=== PATIENT | female | born 1985 | race Caucasian/White ===

== ENCOUNTER → 2019-04-03 | Outpatient (CLI) | payer BC ==
[~2019-04-03] MED LIST: ANUS2.5C2 TOP; COLA50CA3 PO; IBUP600T26 PO; LABE300T PO; MAPA500T17 PO; MOM30SS PO; NUVAMIS2 VA; PRENTAB74 PO
[2019-04-03 08:23] LABS: HEMOGLOBIN A1c 5.2 %
[2019-04-03 08:31] LABS: ALBUMIN 3.8 GM/DL (3.2-5.2); ALT/SGPT 24 U/L (12-78); BILIRUBIN,TOTAL 0.5 MG/DL (0.2-1.0); BLOOD UREA NITROGEN 9 MG/DL (7-18); CARBON DIOXIDE LEVEL 22 MEQ/L (21-32); CHLORIDE LEVEL 116 MEQ/L (98-107); CHOLESTEROL LEVEL 188 MG/DL (<200); CHOLESTEROL RISK RATIO 2.441 (<5); CREATININE FOR GFR 0.89 MG/DL (0.55-1.30); FREE T4 0.99 NG/DL (0.76-1.46); GLOMERULAR FILTRATION RATE > 60.0 (>60); GLUCOSE, FASTING 103 MG/DL (70-100); HDL CHOLESTEROL 77 MG/DL (>40); LDL CHOLESTEROL 87 MG/DL (<100); NON-HDL-C 111 MG/DL; SODIUM LEVEL 134 MEQ/L (136-145); TOTAL PROTEIN 6.9 GM/DL (6.4-8.2); TRIGLYCERIDES LEVEL 122 MG/DL (<150)
== END ==
LOC: M LAB 07:28
PROVIDERS: ATTEND Physician Assistant
DX: E66.8 Other obesity (principal); Z13.1 Encounter for screening for diabetes mellitus

== ENCOUNTER → 2019-08-03 | Outpatient (CLI) | payer BC ==
[2019-08-03 10:37] LABS: HEMOGLOBIN A1c 5.1 %
[2019-08-03 10:38] LABS: BLOOD UREA NITROGEN 14 MG/DL (7-18); CALCIUM LEVEL 9.3 MG/DL (8.5-10.1); CARBON DIOXIDE LEVEL 25 MEQ/L (21-32); CHLORIDE LEVEL 110 MEQ/L (98-107); CREATININE FOR GFR 0.93 MG/DL (0.55-1.30); GLOMERULAR FILTRATION RATE > 60.0 (>60); GLUCOSE, FASTING 85 MG/DL (70-100); POTASSIUM SERUM 4.4 MEQ/L (3.5-5.1); SODIUM LEVEL 140 MEQ/L (136-145)
== END ==
LOC: M LAB 09:03
PROVIDERS: ATTEND Physician Assistant
DX: R73.01 Impaired fasting glucose (principal)

== ENCOUNTER → 2020-01-10 | Outpatient (REF) | payer BC ==
[2020-01-10 13:24] LABS: BLOOD UREA NITROGEN 8 MG/DL (7-18); CALCIUM LEVEL 9.3 MG/DL (8.5-10.1); CARBON DIOXIDE LEVEL 28 MEQ/L (21-32); CHLORIDE LEVEL 107 MEQ/L (98-107); CREATININE FOR GFR 0.83 MG/DL (0.55-1.30); GLOMERULAR FILTRATION RATE > 60.0 (>60); GLUCOSE, FASTING 89 MG/DL (70-100); POTASSIUM SERUM 4.6 MEQ/L (3.5-5.1); SODIUM LEVEL 141 MEQ/L (136-145)
[2020-01-10 14:07] LABS: HEMOGLOBIN A1c 5.1 %
== END ==
LOC: M LABDRWAD 12:33
PROVIDERS: ATTEND Physician Assistant
DX: R73.01 Impaired fasting glucose (principal)

== ENCOUNTER → 2020-07-23 | Outpatient (REF) | payer BC ==
[2020-07-23 13:01] LABS: ALBUMIN 3.6 GM/DL (3.2-5.2); ALT/SGPT 22 U/L (12-78); BILIRUBIN,TOTAL 0.3 MG/DL (0.2-1.0); BLOOD UREA NITROGEN 13 MG/DL (7-18); CALCIUM LEVEL 9.4 MG/DL (8.5-10.1); CARBON DIOXIDE LEVEL 27 MEQ/L (21-32); CHLORIDE LEVEL 109 MEQ/L (98-107); CREATININE FOR GFR 0.87 MG/DL (0.55-1.30); GLOMERULAR FILTRATION RATE > 60.0 (>60); GLUCOSE, FASTING 80 MG/DL (70-100); POTASSIUM SERUM 4.4 MEQ/L (3.5-5.1); SODIUM LEVEL 140 MEQ/L (136-145); TOTAL PROTEIN 6.6 GM/DL (6.4-8.2)
[2020-07-23 13:14] LABS: HEMOGLOBIN A1c 5.1 %
== END ==
LOC: M LABDRWAD 12:09
PROVIDERS: ATTEND Physician Assistant
DX: Z00.00 Encounter for general adult medical examination without abnormal findings (principal); R73.01 Impaired fasting glucose

== ENCOUNTER → 2020-09-02 | Outpatient (CLI) | payer SELFPAY | LOC: M LABSMTC 17:23 | PROVIDERS: ATTEND Pediatrics | DX: Z11.59 Encounter for screening for other viral diseases (principal) ==

== ENCOUNTER → 2021-02-04 | Outpatient (CLI) | payer BC ==
[2021-02-04 09:39] LABS: ALBUMIN 3.4 GM/DL (3.2-5.2); ALT/SGPT 19 U/L (12-78); BILIRUBIN,TOTAL 0.3 MG/DL (0.2-1.0); BLOOD UREA NITROGEN 19 MG/DL (7-18); CALCIUM LEVEL 8.8 MG/DL (8.5-10.1); CARBON DIOXIDE LEVEL 23 MEQ/L (21-32); CHLORIDE LEVEL 111 MEQ/L (98-107); CREATININE FOR GFR 0.82 MG/DL (0.55-1.30); FREE T4 0.92 NG/DL (0.76-1.46); GLOMERULAR FILTRATION RATE > 60.0 (>60); GLUCOSE, FASTING 89 MG/DL (70-100); POTASSIUM SERUM 4.5 MEQ/L (3.5-5.1); SODIUM LEVEL 140 MEQ/L (136-145); TOTAL PROTEIN 6.8 GM/DL (6.4-8.2)
[2021-02-04 09:45] LABS: HEMOGLOBIN A1c 4.8 %
== END ==
LOC: M LAB 08:10
PROVIDERS: ATTEND Physician Assistant
DX: R73.01 Impaired fasting glucose (principal); F41.1 Generalized anxiety disorder

== ENCOUNTER → 2021-09-03 | Outpatient (REF) | LOC: M LABSMTC 11:45 | PROVIDERS: ATTEND Family Medicine | DX: Z11.52 Encounter for screening for COVID-19 (principal) ==

== ENCOUNTER 2022-07-25 12:08 | Emergency (ER) | payer BC ==
[~2022-07-25] VITALS: Ht 157.5 cm; Wt 95.6 kg
[2022-07-25] MEDS ORDERED: FLUO10CA18 (12:17)
[2022-07-25] MEDS ORDERED: ACET1TAB55 PO (12:17)
[2022-07-25] MEDS ORDERED: NUVAMIS2 PV (12:17)
[2022-07-25] MEDS ORDERED: VICT18IN2 (12:17)
[2022-07-25] MEDS ORDERED: KETOROLAC 30 MG/ML 1ML VIAL IM ONE (14:40)
[2022-07-25] MEDS ORDERED: ACETAMINOPHEN TAB 650MG DOSE (2X325MG) PO ONE (14:40)
[2022-07-25] MEDS ORDERED: METH-1165 PO (15:38)
[2022-07-25] MEDS ORDERED: KETO10TAB PO (15:38)
[2022-07-25 15:49] VITALS: BP 156/89
== END 2022-07-25 15:51 | disposition home or self-care (01) ==
LOC: M ED 12:08
DX: M54.41 Lumbago with sciatica, right side (principal); Z88.8 Allergy status to other drugs, medicaments and biological substances; Z79.899 Other long term (current) drug therapy
CPT/HCPCS: 96372; 99283; J1885

== ENCOUNTER → 2022-11-11 | Outpatient (REF) | payer BC ==
[~2022-11-11] MED LIST changes: +ACET1TAB55 PO; +FLUO10CA18; +KETO10TAB PO; +METH-1165 PO; +NUVAMIS2 PV; +VICT18IN2
[2022-11-11 12:50] LABS: BASO % 0.5 % (0.0-1.0); EOS # 0.2 10^3/uL (0.0-0.5); EOS % 3.4 % (0.0-3.0); HEMATOCRIT 42.7 % (36.0-47.0); HEMOGLOBIN 13.8 g/dl (12.0-15.5); LYMPH # 1.7 10^3/uL (1.5-5.0); LYMPH % 37.2 % (24.0-44.0); MEAN CORPUSCULAR HEMOGLOBIN 28.6 pg (27.0-33.0); MEAN CORPUSCULAR HGB CONC 32.3 g/dl (32.0-36.5); MEAN CORPUSCULAR VOLUME 88.4 fl (80.0-96.0); MONO # 0.4 10^3/uL (0.0-0.8); MONO % 8.8 % (2.0-8.0); NEUTROPHILS # 2.2 10^3/uL (1.5-8.5); NEUTROPHILS % 49.9 % (36.0-66.0); PLATELET COUNT, AUTOMATED 239 10^3/uL (150-450); RED BLOOD COUNT 4.83 10^6/uL (4.00-5.40); WHITE BLOOD COUNT 4.4 10^3/uL (4.0-10.0)
[2022-11-11 13:27] LABS: ALBUMIN 3.5 G/DL (3.2-5.2); ALKALINE PHOSPHATASE 49 U/L (46-116); ALT/SGPT 27 U/L (7.0-40); AST/SGOT 19 U/L (<34); BILIRUBIN,TOTAL 0.4 MG/DL (0.3-1.2); BLOOD UREA NITROGEN 13 MG/DL (9-23); CALCIUM LEVEL 9.1 MG/DL (8.5-10.1); CARBON DIOXIDE LEVEL 24 MMOL/L (20-31); CHLORIDE LEVEL 110 MMOL/L (98-107); CHOLESTEROL LEVEL 198 MG/DL (<200); CREATININE FOR GFR 0.88 MG/DL (0.55-1.30); FREE T4 1.18 NG/DL (0.89-1.76); GLOMERULAR FILTRATION RATE > 60.0 (>60); GLUCOSE, FASTING 92 MG/DL (60-100); HDL CHOLESTEROL 82.5 MG/DL (>40); LDL CHOLESTEROL 96.3 MG/DL (<100); NON-HDL-C 116 MG/DL; POTASSIUM SERUM 4.8 MMOL/L (3.5-5.1); SODIUM LEVEL 140 MMOL/L (136-145); THYROID STIMULATING HORMONE 1.712 uIU/ML (0.55-4.78); TOTAL PROTEIN 6.4 G/DL (5.7-8.2); TRIGLYCERIDES LEVEL 96 MG/DL (<150)
[2022-11-11 13:51] LABS: HEMOGLOBIN A1c 5.2 % (4.0-6.0)
== END ==
LOC: M LABDRWAD 12:19
PROVIDERS: ATTEND Nurse Practitioner Adult Health
DX: R73.01 Impaired fasting glucose (principal); F41.1 Generalized anxiety disorder; E66.8 Other obesity

== ENCOUNTER → 2023-01-20 | Outpatient (REF) | payer BC | LOC: M LAB REF 16:58 | PROVIDERS: ATTEND Family Medicine | DX: R30.0 Dysuria (principal) ==